=== PATIENT | male | born 1990 | race Caucasian/White ===

== ENCOUNTER 2024-11-23 11:56 | Emergency (ER) | payer SELFPAY ==
--- NOTE | ~2024-11-23 | XR_ITS ---
Right ankle Technique: AP, oblique, and lateral views were obtained. Clinical History: Injury Findings: No acute fracture or dislocation is seen. Osseous alignment is anatomic. Ankle mortise and other visualized joint spaces are preserved. Soft tissues are otherwise unremarkable. Impression: Unremarkable right ankle. Reviewed, dictated and finalized at location . Impression: Unremarkable right ankle.
[2024-11-23 12:05] VITALS: BP 152/72; PULSE 74; RESP 20; TEMP 36.8; O2SAT 100
--- NOTE | 2024-11-23 12:13 | ED_ITS ---
HPI - Fall General Chief Complaint: Fall Stated Complaint: Fall Time Seen by Provider: 11/23/24 12:04 Source: patient Mode of arrival: wheelchair Limitations: no limitations History of Present Illness HPI Narrative: Patient presents to the clinic for right ankle pain after falling down 3 stairs on his back porch this morning. There is swelling to the area, but no bruising. Patient has been using an Jose Alfredo wrap for support and ibuprofen for pain. Denies deformity. Related Data Home Medications ?Medication ?Instructions ?Recorded ?Confirmed ?Last Taken ?Type No Home Medications 11/23/24 11/23/24 Unknown History Allergies Allergy/AdvReac Type Severity Reaction Status Date / Time codeine Allergy Intermediate migraines Verified 11/23/24 12:13 Review of Systems Review of Systems: CONSTITUTIONAL: Denies body aches, fever, chillsEYES: Denies visual changes ENT: Denies rhinorrhea, congestion CARDIOVASCULAR: Denies chest pain, palpitations, or edema. RESPIRATORY: Denies cough or dyspnea. SKIN: Denies rash, itching, or wounds. MUSCULOSKELETAL: reports right ankle pain. No joint pain or myalgia. NEUROLOGIC: Denies headache, numbness, tingling, or weakness. All systems reviewed & are unremarkable except as noted in HPI and below PMFSH Comments At time of signature, I have reviewed and agree with nursing past medical, surgical, social and family history unless otherwise noted. Please see nursing chart for further information. There is no relevant family history pertinent to the presenting complaint. Exam Narrative: MUSCULOSKELETAL EXAM GENERAL: Well-appearing, well-nourished, and in no acute distress. HEAD: Normocephalic, atraumatic. CHEST: Speaks in full sentences. No respiratory distress. HEART: Regular rate and rhythm. Normal and equal peripheral pulses. EXTREMITIES: Right ankle has normal strength and sensation, slightly decreased range of motion with flexion/extension/rotation, but endorses pain with movement. Edema noted laterally. No ecchymosis, point tenderness to right ankle. No open wounds, skin tenting, or obvious deformity; alignment normal, pulse palpable and equal bilaterally, skin warm, dry, pink. Capillary refill less than 3 seconds. SKIN: Warm, dry, no rash. NEURO: Alert and oriented x3. PSYCH: Normal mood and affect Course Course Level of Care: Express Care Visit Vital Signs Vital signs: Vital Signs Temperature 98.3 F 11/23/24 12:05 Pulse Rate 74 11/23/24 12:05 Respiratory Rate 20 11/23/24 12:05 Blood Pressure 152/72 H 11/23/24 12:05 Pulse Oximetry 100 11/23/24 12:05 Oxygen Delivery Room Air 11/23/24 12:05 Temperature 98.3 F 11/23/24 12:05 Pulse Rate 74 11/23/24 12:05 Respiratory Rate 20 11/23/24 12:05 Blood Pressure 152/72 H 11/23/24 12:05 Pulse Oximetry 100 11/23/24 12:05 Oxygen Delivery Room Air 11/23/24 12:05 MDM - Fall MDM Narrative Medical decision making narrative: Discussed physical exam findings and xray. Advised supportive measures and signs/symptoms to go to the ER. Pt is appropriate for outpatient treatment and follow up. Differential Diagnosis Differential diagnosis: Likely other (right ankle sprain/ strain, right ankle fracture, heel spur.) Critical Care Time Critical Care Time Critical Care Time: No Discharge Plan Discharge Clinical Impression: Ankle sprain Patient Disposition: Home Condition: Stable Instructions: Ankle Sprain (ED) Additional Instructions: Rest and Ice your right ankle. Wear your jose alfredo wrap for support. Avoid running or excessive walking-- or anything that worsens the symptoms. Tylenol 1000mg every 8 hours as needed You can alternate with ibuprofen 600mg Alternate ice/heat to the site. Follow up with your primary care provider as needed in 1 week Go to the ER for worsening symptoms or concerns Patient Language: Yoruba Prescriptions: No Action No Home Medications Follow-up/Referrals: UNKNOWN,DOCTOR [Primary Care Provider] -
== END 2024-11-23 12:54 | disposition home or self-care (01) ==
DX: S93.401A Sprain of unspecified ligament of right ankle, initial encounter (principal); W10.9XXA Fall (on) (from) unspecified stairs and steps, initial encounter
CPT/HCPCS: 73610; 99213; G0463